=== PATIENT | male | born 1990 | race Caucasian/White ===

== ENCOUNTER 2016-06-24 15:00 | Emergency (ER) | payer OTHER ==
[~2016-06-24] VITALS: Ht 180.3 cm; Wt 88.0 kg
[~2016-06-24 15:00] MED LIST: LORTA5 PO; PROM25SU8 PO
[2016-06-24 15:05] VITALS: BP 128/84; PULSE 76; RESP 16; TEMP 99.2; O2SAT 100
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
[2016-06-24] MEDS ORDERED: DIAZEPAM 5 MG TAB PO ONE (17:00)
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
[2016-06-24] MEDS ORDERED: IBUP-232 PO (18:02)
[2016-06-24 18:11] VITALS: BP 123/66
== END 2016-06-24 18:15 | disposition home or self-care (01) ==
LOC: PHED 15:00
DX: R51 Headache (principal); G20 Parkinson's disease; S40.211A Abrasion of right shoulder, initial encounter; V87.8XXA Person injured in other specified noncollision transport accidents involving motor vehicle (traffic), initial encounter; Y99.8 Other external cause status
CPT/HCPCS: 70450; 71010